=== PATIENT | female | born 2000 | race Caucasian/White ===

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

== ENCOUNTER 2024-04-05 17:17 | Emergency (ER) | payer OTHER, BC ==
[2024-04-05 18:13] VITALS: TEMP 97.8
[2024-04-05] MEDS: ACETAMINOPHEN TAB 500 MG TAB PO STA (18:20)
[2024-04-05] MEDS: KETOROLAC 15 MG/ML 1 ML VIAL IM STA (18:20)
[2024-04-05] MEDS: DIPH,PERTUS(ACELL)TETVAC-LF 0.5 ML VIAL IM ONE (18:57)
--- NOTE | 2024-04-05 20:27 | XR ---
EXAMINATION TYPE: XR finger LT DATE OF EXAM: 04/05/2024 COMPARISON: None HISTORY: Cut thumb with knife TECHNIQUE: 3 view left thumb FINDINGS: No acute fracture or dislocation is evident. No acute osseous abnormality is radiographical ly apparent. The soft tissues appear unremarkable. The patient's laceration is not identified. Joint spaces are preserved. No radiopaque foreign body is evident. Follow up exams can be performed as clinically indicated. IMPRESSION: 1. No acute osseous abnormality. 2. Patient's known laceration identified.
[2024-04-05] MEDS: BACITRACIN OINT 1 EACH PACKET TOPICAL ONE (22:00)
--- NOTE | 2024-04-05 22:22 | ED ---
General Adult HPI - General Chief complaint: Wound/Laceration Stated complaint: hand injury Time Seen by Provider: 04/05/24 17:31 Source: patient, RN notes reviewed Mode of arrival: ambulatory - History of Present Illness Initial comments: 23-year-old female presents to the ED with a chief complaint of left thumb laceration. Patient works as a cook at [employer]. Was cutting food earlier today and admits she was looking and accidentally cut the tip of her left thumb. No other injuries at this time. Tetanus status not up-to-date. No other complaints at this time. - Related Data Home Medications Medication Instructions Recorded Confirmed Sertraline [Zoloft] 50 mg PO HS 10/24/16 10/24/16 Previous Rx's Medication Instructions Recorded Cephalexin [Keflex] 500 mg PO Q6HR 5 Days #20 cap 04/05/24 Allergies Allergy/AdvReac Type Severity Reaction Status Date / Time norton Allergy Swelling Verified 10/24/16 16:06 Review of Systems ROS Statement: Those systems with pertinent positive or pertinent negative responses have been documented in the HPI. ROS Other: All systems not noted in ROS Statement are negative. Past Medical History Past Medical History: No Reported History History of Any Multi-Drug Resistant Organisms: None Reported Additional Past Surgical History / Comment(s): dental surgery Past Psychological History: Anxiety, Depression Past Alcohol Use History: None Reported Past Drug Use History: None Reported General Exam General appearance: alert, in no apparent distress Eye exam: Present: normal appearance Neck exam: Present: normal inspection Respiratory exam: Present: normal lung sounds bilaterally Cardiovascular Exam: Present: regular rate GI/Abdominal exam: Present: soft Extremities exam: Present: other (Left thumb shows full flexion extension and opposition. There is approximately a 3 cm laceration of the left thumb on the palmar surface at the distal thumb extending to the dorsal surface.) Back exam: Present: normal inspection Neurological exam: Present: alert, oriented X3 Skin exam: Present: warm, dry Course Vital Signs 04/05/24 04/05/24 17:23 22:32 Temperature 97.8 F Pulse Rate 122 H 94 Respiratory 18 16 Rate Blood Pressure 120/74 109/74 O2 Sat by Pulse 100 99 Oximetry Procedures - Laceration Laceration #1 Site: hand Size (cm): 3 Description: linear Anesthetic Used: lidocaine 1%, without epi Anesthesia Technique: nerve block Amount (mls): 2 Pre-repair: wound explored, irrigated extensively Type of Sutures: nylon Size of Sutures: 5-0 Number of Sutures: 3 Technique: simple, interrupted Patient Tolerated Procedure: well, no complications Medical Decision Making - Medical Decision Making Was pt. sent in by a medical professional or institution (, [facility], [facility], urgent care, hospital, or group home...) When possible be specific @ -No Did you speak to anyone other than the patient for history (EMS, parent, family, police, friend...)? What history was obtained from this source @ -No Did you review nursing and triage notes (agree or disagree)? Why? @ -I reviewed and agree with nursing and triage notes Were old charts reviewed (outside hosp., previous admission, EMS record, old EKG, old radiological studies, urgent care reports/EKG's, group home records)? Report findings @ -No old charts were reviewed Differential Diagnosis (chest pain, altered mental status, abdominal pain women, abdominal pain men, vaginal bleeding, weakness, fever, dyspnea, syncope, headache, dizziness, GI bleed, back pain, seizure, CVA, palpatations, mental health, musculoskeletal)? @ -Differential Musculoskeletal Muscular strain, contusion, ligament sprain, fracture, arthritis, septic arthritis, bursitis, cellulitis, muscle spasm, nerve compression, DVT, arterial occlusion, herpes zoster, electrolyte abnormality, tumor.... This is not meant to be in all inclusive list EKG interpreted by me (3pts min.). @ -As above X-rays interpreted by me (1pt min.). @ -X-ray interpreted me which revealed no evidence of acute finding. CT interpreted by me (1pt min.). @ -None done U/S interpreted by me (1pt. min.). @ -None done What testing was considered but not performed or refused? (CT, X-rays, U/S, labs)? Why? @ -None What meds were considered but not given or refused? Why? @ -None Did you discuss the management of the patient with other professionals (professionals i.e. [facility] Sousa, [facility], lab, RT, psych nurse, high school social science teacher, chef de froid, teacher, access control officer, case finishing machine adjuster)? Give summary @ -No Was smoking cessation discussed for >3mins.? @ -No Was critical care preformed (if so, how long)? @ -No Were there social determinants of health that impacted care today? How? (Homelessness, low income, unemployed, alcoholism, drug addiction, transportation, low edu. Level, literacy, decrease access to med. care, fci, rehab)? @ -No Was there de-escalation of care discussed even if they declined (Discuss DNR or withdrawal of care, Hospice)? DNR status @ -No What co-morbidities impacted this encounter? (DM, HTN, Smoking, COPD, CAD, Cancer, CVA, ARF, Chemo, Hep., AIDS, mental health diagnosis, sleep apnea, morbid obesity)? @ -None Was patient admitted / discharged? Hospital course, mention meds given and route, prescriptions, significant lab abnormalities, going to OR and other pertinent info. @ -Discharge 23-year-old female presenting to the ED with a chief complaint of laceration to her left thumb. This was repaired. For further details please see HPI. Patient works with her hands often. Due to high risk area and a prescription for Keflex. Updated tetanus. Discharged home in stable condition. Discussed return precautions with patient who verbalized agreement. Undiagnosed new problem with uncertain prognosis? @ -No Drug Therapy requiring intensive monitoring for toxicity (Heparin, Nitro, Insulin, Cardizem)? @ -No Were any procedures done? @ -No Diagnosis/symptom? @ -Laceration Acute, or Chronic, or Acute on Chronic? @ -Acute Uncomplicated (without systemic symptoms) or Complicated (systemic symptoms)? @ -Uncomplicated Side effects of treatment? @ -No Exacerbation, Progression, or Severe Exacerbation? @ -No Poses a threat to life or bodily function? How? (Chest pain, USA, ID, pneumonia, PE, COPD, DKA, ARF, appy, cholecystitis, CVA, Diverticulitis, Homicidal, Suicidal, threat to staff... and all critical care pts) @ -No Disposition Clinical Impression: Thumb laceration Disposition: HOME SELF-CARE Condition: Good Instructions (If sedation given, give patient instructions): Care For Your Stitches (ED) Additional Instructions: Please return to the Emergency Department if symptoms worsen or any other c oncerns. Monitor for signs of infection. Please return in 10 to 14 days for suture removal. Prescriptions: Cephalexin [Keflex] 500 mg PO Q6HR 5 Days #20 cap Is patient prescribed a controlled substance at d/c from ED?: No Referrals: Shashank Costa MD [Primary Care Provider] - 1-2 days Time of Disposition: 22:22
[2024-04-05 23:09] VITALS: BP 109/74; PULSE 94; RESP 16
== END 2024-04-05 22:33 | disposition home or self-care (01) ==
LOC: EC 17:17
DX: S61.012A Laceration without foreign body of left thumb without damage to nail, initial encounter (principal); Z91.018 Allergy to other foods; Z23 Encounter for immunization; W26.8XXA Contact with other sharp object(s), not elsewhere classified, initial encounter
CPT/HCPCS: 73140; 90715; 12002; 99283; 96372; 90471; J1885